=== PATIENT | male | born 1995 | race African-American/Black ===

== ENCOUNTER 2017-05-08 14:30 | Emergency (ER) | payer OTHER ==
[~2017-05-08] VITALS: Ht 182.9 cm; Wt 81.7 kg
[~2017-05-08 14:30] MED LIST: HYDROCODONE-AC120 ML PO; NOHOMEMEDICATIONS; NORCO 5-325 TA1 EACH PO
[2017-05-08] MEDS ORDERED: NAPROSYN500 MG PO (14:50)
[2017-05-08] MEDS ORDERED: AMOXICILLIN 50500 MG PO (14:50)
[2017-05-08 14:52] VITALS: BP 133/77
== END 2017-05-08 15:29 | disposition home or self-care (01) ==
LOC: ER 14:30
DX: K02.9 Dental caries, unspecified (principal); F17.210 Nicotine dependence, cigarettes, uncomplicated; F12.10 Cannabis abuse, uncomplicated

== ENCOUNTER 2019-12-15 20:21 | Emergency (ER) | payer OTHER ==
[~2019-12-15] VITALS: Ht 185.4 cm; Wt 81.7 kg
[~2019-12-15 20:21] MED LIST changes: +AMOXICILLIN 50500 MG PO; +NAPROSYN500 MG PO
[2019-12-15] MEDS ORDERED: AZITHROMYCIN500 MG PO (20:40)
[2019-12-15 20:58] LABS: URINE BILIRUBIN NEGATIVE (Negative); URINE BLOOD 3+ (Negative); URINE CLARITY CLOUDY; URINE COLOR YELLOW; URINE GLUCOSE-RANDOM* NEGATIVE (Negative); URINE KETONES TRACE (Negative); URINE NITRITE-REFLEX NEGATIVE (Negative); URINE PROTEIN (DIPSTICK) TRACE (Negative); URINE SPECIFIC GRAVITY 1.025 (1.005-1.035)
[2019-12-15 21:01] LABS: URINE LEUKOCYTES-REFLEX 1+ (Negative)
[2019-12-15 21:04] LABS: BACTERIA-REFLEX 1-9 Few /HPF (None Seen); CASTS None Seen /LPF (None Seen); CRYSTALS None Seen /LPF (None Seen); MUCUS 0-3 Light strn/LPF (None Seen); SQUAMOUS 0-3 Few /LPF (0-3); URINE WBC-REFLEX >25 Many /HPF (0-5); WBC CLUMPS Moderate (None Seen)
[2019-12-15] MEDS ORDERED: BACTRIM DS TAB1 EACH PO (21:26)
[2019-12-15 21:42] VITALS: BP 126/81
== END 2019-12-15 21:42 | disposition home or self-care (01) ==
LOC: ER 20:21
PROVIDERS: Nurse Practitioner
DX: N39.0 Urinary tract infection, site not specified (principal); F17.210 Nicotine dependence, cigarettes, uncomplicated

== ENCOUNTER 2020-07-31 07:50 | Emergency (ER) | payer OTHER ==
[~2020-07-31] VITALS: Ht 182.9 cm; Wt 79.4 kg
[~2020-07-31 07:50] MED LIST changes: +AZITHROMYCIN500 MG PO; +BACTRIM DS TAB1 EACH PO
[2020-07-31] MEDS ORDERED: NAPROSYN500 MG PO (08:49)
[2020-07-31 09:14] VITALS: BP 107/71
--- NOTE | 2020-07-31 16:21 | EKG ---
[facility] [place] [address] ELECTROCARDIOGRAM REPORT Name: IAN MOSHER Room #: DEP [facility]#: [id number] Admission: 07/31/20 Attend Phys: Discharge: 07/31/20 Date of : [birth year] Report #: [id number] THIS REPORT FOR: cc: ZANDRA - Kristen family physician/PCP FAM - No family physician/PCP Washington Costa MD [facility] THIS REPORT FOR: //name// [facility] ED Test Date: 2020-07-31 Test Time: 07:56:35 Pat Name: IAN MOSHER Department: Room: Gender: Pvc Loader: [facility] : 1995 Requested By: Jian Patel Order Number: [id number] MD: Washington Costa Measurements Intervals [place] Rate: 80 P: 64 UT: 120 QRS: 73 QRSD: 97 T: 53 QT: 382 QTc: 441 Interpretive Statements Sinus arrhythmia ST elev, probable normal early repol pattern No previous ECG available for comparison Electronically Signed On 07-31-2020 16:21:27 CDT by Washington Costa [email or web address] <ELECTRONICALLY SIGNED> By: Washington Costa MD, [facility] 07/31/20 1621 [id number] Washington Costa MD, [facility] /EPI
== END 2020-07-31 09:14 | disposition home or self-care (01) ==
LOC: ER 07:50
DX: R07.89 Other chest pain (principal); R06.02 Shortness of breath; F17.210 Nicotine dependence, cigarettes, uncomplicated